=== PATIENT | female | born 1985 | race Two or more races ===

== ENCOUNTER 2024-11-07 08:41 | Emergency (ER) | payer OTHER ==
[~2024-11-07] VITALS: Ht 165.1 cm; Wt 59.0 kg
[2024-11-07 09:27] VITALS: BP 101/69; O2SAT 97
[2024-11-07] MEDS ORDERED: LIDOCAINE HCL VISCOUS 20MG/ML BLIST 15ML MM ONE (09:49)
[2024-11-07] MEDS ORDERED: LIDOCAINE HCL MM ONE (10:00)
[2024-11-07] MEDS ORDERED: MAGNESIUM HYDROXIDE MM ONE (10:00)
[2024-11-07 10:10] LABS: BASO % 0.3 % (0.1-1.2); EOS # 0.13 (0.04-0.54); EOS % 1.3 % (0.7-7.0); LYMPH # 1.11 (1.18-3.74); LYMPH % 11.0 % (19.3-53.1); MEAN PLATELET VOLUME 9.70 fl (9.4-12.4); MONO # 0.71 (0.24-0.82); MONO % 7.0 % (4.7-12.5); NEUT # 8.10 (1.56-6.13); NEUT % 80.0 % (34.0-71.1); RED CELL DISTRIBUTION WIDTH 13.0 % (11.6-14.4)
[2024-11-07 10:57] LABS: COVID-19 AG NEGATIVE (NEGATIVE)
[2024-11-07] MEDS ORDERED: CEFTRIAXONE SODIUM 1,000 MG VIAL IM ONE (13:30)
[2024-11-07] MEDS ORDERED: CEFTRIAXONE SODIUM 1,000 MG VIAL ONE (13:39)
[2024-11-07] MEDS ORDERED: AMOX-CLAV 875-1 EACH PO (13:48)
== END 2024-11-07 14:22 | disposition home or self-care (01) ==
LOC: ER 08:41
PROVIDERS: Preventive Medicine Public Health & General Preventive Medicine
DX: J02.9 Acute pharyngitis, unspecified (principal); Z20.822 Contact with and (suspected) exposure to COVID-19; Z91.018 Allergy to other foods